=== PATIENT | male | born 1960 | race Caucasian/White ===

== ENCOUNTER 2022-11-19 09:22 | Outpatient (CLI) | payer OTHER, SELFPAY ==
[2022-11-19 13:33] LABS: Albumin* 3.9 g/dL (3.3-5.0); Chloride* 103 mmol/L (96-114); Potassium* 4.7 mmol/L (3.6-5.1); Sodium* 136 mmol/L (135-149)
[2022-11-19 13:35] LABS: Bilirubin Total* 0.5 mg/dL (0.1-1.5); Creatinine* 1.3 mg/dL (0.5-1.5); Estimated Glomerular Filt Rate 62 ml/min
[2022-11-19 13:36] LABS: Alanine Aminotransferase* 37 U/L (4-50); Alkaline Phosphatase* 84 U/L (40-150); Aspartate Amino Transferase* 32 U/L (12-35); Blood Urea Nitrogen* 24 mg/dL (7-30); Calcium* 9.4 mg/dL (8.4-10.6); Carbon Dioxide* 27 mmol/L (20-32); Glucose* 99 mg/dL (60-115)
== END 2022-11-19 09:23 | disposition home or self-care (01) ==
LOC: KYNREF 09:27
PROVIDERS: PCP Nurse Practitioner Family; Visit Provider Nurse Practitioner Family
DX: I10 Essential (primary) hypertension (principal); Z51.81 Encounter for therapeutic drug level monitoring
CPT/HCPCS: 80053

== ENCOUNTER 2022-12-04 07:56 | Outpatient (CLI) | payer OTHER, SELFPAY ==
--- NOTE | 2022-12-04 08:15 | CRLHL7_ITS ---
For Patients: As a result of the Century Cures Act, medical imaging exams and procedure reports are released immediately into your electronic medical record. You may view this report before your referring provider. If you have questions, please contact your health care provider. INDICATION: Low back pain. TECHNIQUE: Multiplanar multisequence noncontrast MR images acquired through the lumbar spine. COMPARISON: Lumbar spine radiographs 10/17/2022. FINDINGS: The lumbar lordosis is preserved. Vertebral body heights are maintained. No acute fracture or spondylolisthesis. No T1 hypointense marrow replacing lesions. Normal conus terminates at L1. T12-L1 and L1-2: No spinal canal or neural foraminal narrowing. L2-3: Shallow posterior disc bulge. No spinal canal or neural foraminal narrowing. L3-4: Mild disc degeneration. Shallow posterior disc bulge. Epidural fat prominence. Mild facet arthropathy. Ugwe-li-uqqnqfvp thecal sac narrowing. Mild bilateral neural foraminal narrowing. L4-5: Rtsj-yn-aijhjlsl disc degeneration. Posterior disc bulge. Epidural lipomatosis. Moderately advanced bilateral facet arthropathy. Bilateral facet effusions. Mild edema within the bilateral articulating facets. Severe thecal sac narrowing. Mild right without left neural foraminal narrowing. L5-S1: Epidural lipomatosis. Mild disc degeneration. Shallow posterior disc bulge. Fpzx-if-urovtcel facet arthropathy. Severe thecal sac effacement. No neural foraminal narrowing. Sacroiliac joint degenerative changes. IMPRESSION: 1. Multilevel lumbar spondylosis superimposed on epidural lipomatosis. 2. At L4-5, severe thecal sac effacement. Moderately advanced facet arthropathy. Mild edema within the bilateral articulating facets is most compatible with a stress response. 3. At L5-S1, epidural lipomatosis severely effaces the thecal sac. Dictated by Elias An MD @ 12/04/2022 9:14:57 PM (Electronically Signed)
== END 2022-12-04 07:57 | disposition home or self-care (01) ==
LOC: MRI 07:57
PROVIDERS: PCP Nurse Practitioner Family; Visit Provider Nurse Practitioner Family
DX: M54.50 Low back pain, unspecified (principal); M47.896 Other spondylosis, lumbar region
CPT/HCPCS: 72148

== ENCOUNTER 2023-01-07 19:29 | Outpatient (CLI) | payer OTHER, SELFPAY ==
--- NOTE | 2023-01-16 08:41 | W.PM.SLEEP ---
Sleep Study Details Details Interpreting Provider: Shilo Date of Sleep Study: 01/07/23 Sleep Study Details: STUDY TYPE:? Home unattended ? BMI:? 40.7 ORDERING PROVIDER:Neena Ugalde INDICATION:? Concerns about sleep apnea ? SLEEP SUMMARY:? 208.5 minutes monitor RESPIRATORY SUMMARY:? AHI 65 note the entire study was done supine. Low oxygen 48 31% of the study oxygen less than 90% Snoring 19.2% PERIODIC LIMB MOVEMENTS OF SLEEP:? Not recorded during home study CARDIAC:? Range 49-97, mean 79.1 IMPRESSION:? Severe obstructive sleep apnea with significant hypo oxygenation RECOMMENDATION: In-lab titration is preferred because of the hypo oxygenation. However an AutoSet CPAP could be utilized at pressure setting of 4-18. Once effective therapy is established the patient should have an overnight oximetry study done.
== END 2023-01-07 19:30 | disposition home or self-care (01) ==
PROVIDERS: PCP Nurse Practitioner Family; Visit Provider Nurse Practitioner Family
DX: G47.33 Obstructive sleep apnea (adult) (pediatric) (principal)
CPT/HCPCS: 95806

== ENCOUNTER 2023-05-15 09:46 | Outpatient (CLI) | payer OTHER, SELFPAY | END 2023-05-15 09:47 | disposition home or self-care (01) | LOC: KYNREF 09:50 | PROVIDERS: PCP Nurse Practitioner Family; Visit Provider Nurse Practitioner Family | DX: I10 Essential (primary) hypertension (principal) | CPT/HCPCS: 80048 ==

== ENCOUNTER 2023-10-20 09:08 | Outpatient (CLI) | payer OTHER, SELFPAY | END 2023-10-20 09:09 | disposition home or self-care (01) | LOC: NFLDREF 10-22 11:22 | PROVIDERS: PCP Nurse Practitioner Family; Referring Provider Nurse Practitioner Family; Visit Provider Nurse Practitioner Family | DX: E10.3593 Type 1 diabetes mellitus with proliferative diabetic retinopathy without macular edema, bilateral (principal); E78.5 Hyperlipidemia, unspecified; R60.0 Localized edema; Z13.0 Encounter for screening for diseases of the blood and blood-forming organs and certain disorders involving the immune mechanism; Z12.5 Encounter for screening for malignant neoplasm of prostate | CPT/HCPCS: 80053; 80061; 82043; 82570; 83880; 84443; 85025; G0103 ==

== ENCOUNTER 2024-05-25 14:24 | Outpatient (CLI) | payer MEDICARE, SELFPAY | END 2024-05-25 14:25 | disposition home or self-care (01) | LOC: KYNREF 14:25 | PROVIDERS: PCP Nurse Practitioner Family; Visit Provider Nurse Practitioner Family | DX: N39.0 Urinary tract infection, site not specified (principal) | CPT/HCPCS: 81001; 87086; 87186 ==

== ENCOUNTER 2024-06-12 12:23 | Outpatient (CLI) | payer MEDICARE, SELFPAY ==
--- OUTSIDE RECORDS SUMMARY | 2024-06-12 19:04 | XMS_ITS | Encounter Summary ---
Author Organization [facility] Address [address] [place] [address]. [place] [address] Care Team Providers Care Stock Replenisher Name Role Phone Radha Ugalde NP Primary Care Provider Encounter Details Date Type Department Care Team (Latest Contact Info) Description 05/18/2024 Travel Social History Tobacco Use Types Packs/Day Years Used Date Smoking Tobacco: Never Assessed Sex and Gender Information Value Date Recorded Sex Assigned at Not on file Legal Sex Male 8:37 AM CDT Gender Identity Not on file Sexual Orientation Not on file documented as of this encounter Plan of Treatment Upcoming Encounters Date Type Department Care Team (Late st Contact Info) Description 06/18/2024 9:30 AM WEB DEVELOPMENT MANAGER Office Visit [facility] [place] [address] [place] [phone] Jessika Chatterjee MD [address] [place] [address] documented as of this encounter Visit Diagnoses Not on filedocumented in this encounter Care Teams Stock Replenisher Relationship Specialty Start Date End Date Radha Ugalde NP [facility] [address] [place] [address] PCP - General 05/06/24 documented as of this encounter
--- OUTSIDE RECORDS SUMMARY | 2024-06-12 19:04 | XMS_ITS | Encounter Summary ---
Author Organization [facility] Address [address] [place] [address]. [place] [address] Care Team Providers Care Radiologic Tech Name Role Phone Ugalde, Radha MARTINEZ Primary Care Provider Reason for Referral * Diagnostic Imaging Ultrasound (Routine) - Pending Review Specialty Diagnoses / Procedures Referred By Mindi padilla Referred To Contact Radiology. Diagnoses Other specified symptoms and signs involving the circulatory and respiratory systems Procedures US JUAN Doppler with Exercise Bilateral Jessika Chatterjee MD [address] [place] [address] Phone: tel: fax: Referral ID Status Reason Start Date Expiration Date V isits Requested Visits Authorized [id number] Pending Review 05/18/2024 05/18/2025 1 1 Reason for Visit * Diagnostic Imaging Ultrasound (Routine) - Pending Review Specialty Diagnoses / Procedures Referred By Mindi padilla Referred To Contact Radiology. Diagnoses Other specified symptoms and signs involving the circulatory and respiratory systems Procedures US JUAN Doppler with Exercise Bilateral Jessika Chatterjee MD [address] [place] [address] Phone: tel: fax: Referral ID Status Reason Start Date Expiration Date V isits Requested Visits Authorized [id number] Pending Review 05/18/2024 05/18/2025 1 1 Encounter Details Date Type Department Care Team (Latest Contact Info) Description 05/18/2024 2:15 PM CDT Hospital Encounter [facility] [address] [place] [address] Jessika Chatterjee MD [address] [place] [address] Other specified symptoms and signs involving the circulatory and respiratory systems Discharge Disposition: Home or Self Care Social History Tobacco Use Types Packs/Day Years Used Date Smoking Tobacco: Never Assessed Sex and Gender Information Value Date Recorded Sex Assigned at Not on file Legal Sex Male 8:37 AM CDT Gender Identity Not on file Sexual Orientation Not on file documented as of this encounter Miscellaneous Notes * Result Encounter Note - Jessika Chatterjee MD - 05/18/2024 6:14 PM CDT Will discuss at his visit documented in this encounter Plan of Treatment Upcoming Encounters Date Type Department Care Team (Late st Contact Info) Description 06/18/2024 9:30 AM SCRUBBER SYSTEM ATTENDANT Office Visit [facility] [place] [address] [place] [phone] Jessika Chatterjee MD [address] [place] [address] documented as of this encounter Procedures Procedure Name Priority Date/Time Associated Diagnosis Comments US JUAN DOPPLER WITH EXERCISE BILATERAL Routine 05/18/2024 3:23 PM CDT Other specified symptoms and signs involving the circulatory and respiratory systems documented in this encounter Results * US JUAN Doppler with Exercise Bilateral (05/18/2024 3:23 PM CDT) Anatomical Region Laterality Modality Leg, Ankle, Foot Ultrasound Impressions 05/18/2024 4:23 PM CDT IMPRESSION: Moderate bilateral arterial insufficiency. JUAN CRITERIA: >1.4 NC 0.95-1.4 Normal 0.90 - 0.94 Mild 0.5 - 0.89 Moderate 0.2 - 0.49 Severe <0.2 Critical CHRISTOPHER SWIFT MD Narrative 05/18/2024 4:23 PM CDT US JUAN DOPPLER WITH EXERCISE BILATERAL ?? 05/18/2024 3:23 PM HISTORY: With TBI; Other specified symptoms and signs involving the circulatory and respiratory systems. COMPARISON: None. FINDINGS: Right JUAN: PT: 121, index of 0.7 DP: Noncompressible Left JUAN: PT: 139, index of 0.8 DP: 143, index of 0.82 Right Digital brachial index: 148, index of 0.85 Left Digital Brachial index: 144, index of 0.83 Waveforms: The right common femoral arterial waveform is triphasic/biphasic. Popliteal waveform is biphasic. Posterior tibial waveform is biphasic and dorsalis pedis waveform is triphasic. Digital waveforms are present, though diminished. The left femoral and popliteal arteries are triphasic. Posterior tibial and dorsalis pedis waveforms are biphasic. Digital waveforms are present. Exercise: The patient was exercised on a treadmill at 1.0 mph at a 0% incline for 5 minutes total. Patient noted bilateral hip pain at 1 minute and 30 seconds, bilateral thigh cramping at 2 minutes, discontinuation at 3 minutes. Right exercise JUAN: 0.76 Left exercise JUAN: 0.62 Procedure Note Christopher Swift MD - 05/18/2024 US JUAN DOPPLER WITH EXERCISE BILATERAL 05/18/2024 3:23 PM HISTORY: With TBI; Other specified symptoms and signs involving the circulatory and respiratory systems. COMPARISON: None. FINDINGS: Right UJAN: PT: 121, index of 0.7 DP: Noncompressible Left JUAN: PT: 139, index of 0.8 DP: 143, index of 0.82 Right Digital brachial index: 148, index of 0.85 Left Digital Brachial index: 144, index of 0.83 Waveforms: The right common femoral arterial waveform is triphasic/biphasic. Popliteal waveform is biphasic. Posterior tibial waveform is biphasic and dorsalis pedis waveform is triphasic. Digital waveforms are present, though diminished. The left femoral and popliteal arteries are triphasic. Posterior tibial and dorsalis pedis waveforms are biphasic. Digital waveforms are present. Exercise: The patient was exercised on a treadmill at 1.0 mph at a 0% incline for 5 minutes total. Patient noted bilateral hip pain at 1 minute and 30 seconds, bilateral thigh cramping at 2 minutes, discontinuation at 3 minutes. Right exercise JUAN: 0.76 Left exercise JUAN: 0.62 IMPRESSION: Moderate bilateral arterial insufficiency. JUAN CRITERIA: >1.4 NC 0.95-1.4 Normal 0.90 - 0.94 Mild 0.5 - 0.89 Moderate 0.2 - 0.49 Severe <0.2 Critical CHRISTOPHER SWIFT MD Jessika Chatterjee MD IMG US ORDERABLES Fi nal Result documented in this encounter Visit Diagnoses Diagnosis Other specified symptoms and signs involving the circulatory and respiratory systems documented in this encounter Care Teams Radiologic Tech Relationship Specialty Start Date End Date Radha Ugalde NP [address] [address] PCP - General 05/06/24 documented as of this encounter
--- OUTSIDE RECORDS SUMMARY | 2024-06-12 19:04 | XMS_ITS | Clinical Summary ---
Author Organization [facility] Address [address] [place] [address]. [place] [address] Care Team Providers Care Sound Effects Supervisor Name Role Phone Radha Ugalde NP Primary Care Provider [phone] Encounters Date Type Department Care Team Description 05/18/2024 2:15 PM CDT Hospital Encounter [facility] [address] [place] [phone] Jessika Chatterjee MD Other specified symptoms and signs involving the circulatory and respiratory systems Discharge Disposition: Home or Self Care 05/18/2024 Travel 05/06/2024 Telephone [facility] [place] [address] [place] [phone] Nurse, [facility] Referral (Referred by Dr. Ugalde for bilateral leg pain & swelling. Referral & office notes faxed to HIMs.) 04/29/2024 Medical Correspondence [facility] Information Management [address] [facility] [address] [place] [address] Scan, Non-Provider from Last 3 Months Social History Tobacco Use Types Packs/Day Years Used Date Smoking Tobacco: Never Assessed Sex and Gender Information Value Date Recorded Sex Assigned at Not on file Legal Sex Male 8:37 AM CDT Gender Identity Not on file Sexual Orientation Not on file Plan of Treatment Upcoming Encounters Date Type Department Care Team (Late st Contact Info) Description 06/18/2024 9:[address]NAGER Office Visit [facility] [place] [address] [place] [phone] Jessika Chatterjee MD [address] [place] [phone] Health Maintenance Due Date Last Done Comments ADVANCE CARE PLANNING 1959 ANNUAL REVIEW OF HM ORDERS 1959 CT COLONOGRAPHY 1959 FIT 1959 FLEX SIG 1959 GLUCOSE 1959 sDNA (Cologuard) 1959 COLONOSCOPY 1969 COLORECTAL CANCER SCREENING 1969 HIV SCREENING 1974 HEPATITIS C SCREENING 1977 LIPID 1999 ZOSTER IMMUNIZATION (2 of 2) 12/10/2021 10/15/2021 PHQ-2 (once per calendar year) 2023 COVID-19 Vaccine (2 - 2023-2 5 season) 2024 10/25/2020 INFLUENZA VACCINE (#1) 2024 10/15/2021 FALL RISK ASSESSMENT 2024 MEDICARE ANNUAL WELLNESS VISIT 2024 Pneumococcal Vaccine: 65+ Ye ars (2 of 2 - PCV) 2024 10/15/2021 DTAP/TDAP/TD IMMUNIZATION (2 - Td or Tdap) 01/21/2028 01/20/2018 RSV VACCINE (1 - 1-dose 75+ series) 2034 HPV IMMUNIZATION Aged Out No longer e ligible based on patient's age to complete this topic MENINGITIS IMMUNIZATION Aged Out No l onger eligible based on patient's age to complete this topic RSV MONOCLONAL ANTIBODY Aged Out No l onger eligible based on patient's age to complete this topic Procedures Procedure Name Priority Date/Time Associated Diagnosis Comments US JUAN DOPPLER WITH EXERCISE BILATERAL Routine 05/18/2024 3:23 PM CDT Other specified symptoms and signs involving the circulatory and respiratory systems HEMOGLOBIN A1C (EXTERNAL RESULT) Routine 04/29/2024 8:38 AM CDT LAB RESULT - HIM SCAN 04/29/2024 12:00 AM CDT LAB RESULT - HIM SCAN 04/29/2024 12:00 AM CDT LAB RESULT - HIM SCAN 04/29/2024 12:00 AM CDT from Last 3 Months Results * US JUAN Doppler with Exercise Bilateral (05/18/2024 3:23 PM CDT) Anatomical Region Laterality Modality Leg, Ankle, Foot Ultrasound Impressions 05/18/2024 4:23 PM CDT IMPRESSION: Moderate bilateral arterial insufficiency. JUAN CRITERIA: >1.4 NC 0.95-1.4 Normal 0.90 - 0.94 Mild 0.5 - 0.89 Moderate 0.2 - 0.49 Severe <0.2 Critical CHRISTOPHER SWIFT MD [facility] 05/18/2024 4:23 PM CDT US JUAN DOPPLER [...] MD IMG US ORDERABLES Fi nal Result * (ABNORMAL) Hemoglobin A1c (External Result) (04/29/2024 8:38 AM CDT) Hemoglobin A1C (External) 5.9(A) 0 - 5.6 % EXTERNAL LAB Blood 04/29/2024 8:38 AM CDT Narrative EXTERNAL LAB - 04/29/2024 8:38 AM CDT [facility] - External Lab Results [place] - [place] + X - [place] [address] [place] [id number] us Provider Outside LAB - HIM EXTERNAL RESULT Edite d Result - Final EXTERNAL LAB External Lab * Lab Result - HIM Scan (04/29/2024 12:00 AM CDT) Only the most recent of3 resultswithin the time period is included. 04/29/2024 us Provider Outside NON-BEAKER LAB TESTING Final Result from Last 3 Months Insurance [employer] MEDICARE ADVANTAGE [employer] MED[employer]ARE ADVANTAGE Care Teams Sound Effects Supervisor Relationship Specialty Start Date End Date Radha Ugalde NP [address] [address] PCP - General 05/06/24
--- OUTSIDE RECORDS SUMMARY | 2024-06-12 19:04 | XMS_ITS | Referral Summary ---
Author Organization [facility] Address [address] [place] [address]. [place] [address] Care Team Providers Care Men'S Swim Coach Name Role Phone Radha Ugalde NP Primary Care Provider Encounters Date Type Department Care Team Description 05/18/2024 2:15 PM CDT Hospital Encounter [facility] [address] [place] [phone] Jessika Chatterjee MD Other specified symptoms and signs involving the circulatory and respiratory systems Discharge Disposition: Home or Self Care 05/18/2024 Travel 05/06/2024 Telephone [facility] [place] [address] [place] [phone] Nurse, [facility] Referral (Referred by Dr. Ugalde for bilateral leg pain & swelling. Referral & office notes faxed to HIMs.) 04/29/2024 Medical Correspondence [facility] Information Management [address] [facility] [address] [place] [address] Scan, Non-Provider from Last 3 Months Social [...] st Contact Info) Description 06/18/2024 9:30 AM MANUFACTURING ENGINEERING TECHNOLOGIST Office Visit [facility] [place] [address] [place] [phone] Jessika Chatterjee MD [address] [place] [phone] Procedures Procedure Name Priority Date/Time Associated Diagnosis [...] Critical CHRISTOPHER SWIFT MD Jessika Chatterjee MD [facility] [place] ORDERABLES Fi nal Result * (ABNORMAL) Hemoglobin A1c (External Result) (04/29/2024 8:38 AM CDT) Hemoglobin A1C (External) 5.9(A) 0 - 5.6 % EXTERNAL LAB Blood 04/29/2024 8:38 AM CDT Narrative EXTERNAL LAB - 04/29/2024 8:38 AM CDT [facility] - External Lab Results [place] - [place] + X - [place] [address] [place] [address] us Provider Outside LAB - HIM EXTERNAL RESULT Edite d Result - Final EXTERNAL LAB External Lab * Lab Result - HIM Scan (04/29/2024 12:00 AM CDT) Only the most recent of3 resultswithin the time period is included. 04/29/2024 us Provider Outside MH NON-BEAKER LAB TESTING Final Result from Last 3 Months Insurance [employer] MEDICARE ADVANTAGE [employer] MEDICARE ADVANTAGE Care Teams Men'S Swim Coach Relationship Specialty Start Date End Date Radha Ugalde NP [address] [place] [address] PCP - General 05/06/24
--- OUTSIDE RECORDS SUMMARY | 2024-06-12 19:05 | XMS_ITS | Encounter Summary ---
Author Organization [place] Address [address] [place] [address]. [place] [address] Care Team Providers Care General Surgery Physician Assistant Name Role Phone Radha Ugalde NP Primary Care Provider Encounter Details Date Type Department Care Team (Late st Contact Info) Description 04/29/2024 Medical Correspondence [facility] Information Management [address] [place] [address] Scan, Non-Provider Social History Tobacco Use Types Packs/Day Years [...] st Contact Info) Description 06/18/2024 9:30 AM INVOICING MACHINE OPERATOR Office Visit [facility] [place] [address] [place] [phone] Jessika Chatterjee MD [address] [place] [address] documented as of this encounter Visit Diagnoses Not on filedocumented in this encounter Care Teams General Surgery Physician Assistant Relationship Specialty Start Date End Date Radha Ugalde NP [address] [address] PCP - General 05/06/24 documented as of this encounter
--- OUTSIDE RECORDS SUMMARY | 2024-06-12 19:05 | XMS_ITS | Encounter Summary ---
Author Organization [facility] Address [address] [place] [address]. [place] [address] Care Team Providers Care Correction Officer Head Name Role Phone Radha Ugalde NP Primary Care Provider Reason for Referral * Diagnostic Imaging Ultrasound (Routine) - Pending Review Specialty Diagnoses / Procedures Referred By Contac t Referred To Contact Radiology. Diagnoses Other specified symptoms and signs involving the circulatory and respiratory systems Procedures US JUAN Doppler with Exercise Bilateral Jessika Chatterjee MD [address] [place] [address] Phone: tel: fax: Referral ID Status Reason Start Date Expiration Date V isits Requested Visits Authorized [id number] Pending Review 05/18/2024 05/18/2025 1 1 Reason for Visit * Reason Onset Date Comments Referral 05/06/[address] Ugalde for bilateral leg pain & swelling. [facility] Encounter Details Date Type Department Care Team (Late st Contact Info) Description 05/06/2024 Telephone [facility] [place] [address] [place] [phone] Nurse, [facility] Referral (Referred by Dr. Ugalde for bilateral leg pain & swelling. Referral & office notes faxed to HIMs.) Social History Tobacco Use Types Packs/Day Years Used Date Smoking Tobacco: Never Assessed Sex and Gender Information Value Date Recorded Sex Assigned at Not on file Legal Sex Male 8:37 AM CDT Gender Identity Not on file Sexual Orientation Not on file documented as of this encounter Miscellaneous Notes * Telephone Encounter - Antionette Miramontes - 05/06/2024 2:53 PM CDT Patient is scheduled for his Ultrasound on 05/18/24 and Consult Appointment rescheduled with Dr Chatterjee on 05/26/24. * Telephone Encounter - Marian Kruse - 05/06/2024 2:17 PM CDT Needs to be rescheduled with vasc medicine JUAN US with exercise NEW VASCULAR PATIENT consult with vascular medicine Please schedule this at next available Appt note: Referred by Dr. Ugalde for bilateral leg pain & swelling. Referral & office notes faxed to HIMs. * Telephone Encounter - Radha Lopez RN - 05/06/2024 8:38 AM CDT Images from the original note were not included. Referral received via Fax on 04/29/2024. Referred by Dr. Ugalde for bilateral leg pain & swelling. Referral & office notes faxed to HIMs. Previous imaging completed (pertinent to referral): NA Routing to scheduling to coordinate the following: JUAN US with exercise NEW VASCULAR PATIENT consult with vascular medicine Please schedule this at next available Appt note: Referred by Dr. Ugalde for bilateral leg pain & swelling. Referral & office notes faxed to HIMs. * Addendum Note - Brennan Hopper RN - 05/06/2024 8:38 AM CDTAddended by: BRENNAN HOPPER on: 05/18/2024 02:28 PM Modules accepted: Orders documented in this encounter Plan of Treatment Upcoming Encounters Date Type Department Care Team (Late st Contact Info) Description 06/18/2024 9:30 AM TELEPHONE MAINTAINER Office Visit [facility] [place] [address] [place] [phone] Jessika Chatterjee MD [address] [place] [address] documented as of this encounter Results * US JUAN Doppler [...] documented in this encounter Visit Diagnoses Diagnosis Pain in both lower legs- Primary Other specified symptoms and signs involving the circulatory and respiratory systems Other specified symptoms and signs involving the circulatory and respiratory systems documented in this encounter Care Teams Correction Officer Head Relationship Specialty Start Date End Date Radha Ugalde NP [address] [address] PCP - General 05/06/24 documented as of this encounter
== END 2024-06-12 12:24 | disposition home or self-care (01) ==
LOC: NFLDREF 19:01
PROVIDERS: PCP Nurse Practitioner Family; Referring Provider Nurse Practitioner Family; Visit Provider Family Medicine
DX: R30.0 Dysuria (principal); N39.0 Urinary tract infection, site not specified; R31.9 Hematuria, unspecified
CPT/HCPCS: 87086; 87186

== ENCOUNTER 2025-05-05 09:28 | Outpatient (CLI) | payer MEDICARE, SELFPAY | END 2025-05-05 09:29 | disposition home or self-care (01) | PROVIDERS: PCP Nurse Practitioner Family; Visit Provider Nurse Practitioner Family | DX: E10.3593 Type 1 diabetes mellitus with proliferative diabetic retinopathy without macular edema, bilateral (principal); G47.30 Sleep apnea, unspecified | CPT/HCPCS: 80053; 80061; 82043; 82570; 82607; 84443; G0103 ==

== ENCOUNTER 2025-06-01 21:03 | Outpatient (CLI) | payer MEDICARE, SELFPAY ==
--- NOTE | 2025-06-14 11:54 | P.SLS_ITS ---
Sleep Study Details Details Interpreting Provider: Patrice Date of Sleep Study: 06/01/25 Sleep Study Details: STUDY TYPE:? Hospital-based, attended, CPAP titration ? BMI:? 45.8 ORDERING PROVIDER:Neena Ugalde INDICATION:? Concern for sleep apnea ? SLEEP SUMMARY:? 342 minutes total sleep time RESPIRATORY SUMMARY:? Mean oxygen awake 95 asleep 92, minimum 68, 8.6 minutes o xygen between 80 and 88% AHI 35 per CMS guideline, 38.6 per rule 1A. Supine REM AHI 63.5 patient was titrated with CPAP starting at a pressure of 14 which included REM stage sleep in the supine position and decreased AHI to 2.1. He was advanced to 15 which decreased AHI to 0. PERIODIC LIMB MOVEMENTS OF SLEEP:? Pre treatment index 0, post treatment index 2.2, index with arousal 0.2 CARDIAC:? Awake 69 asleep 65 no arrhythmias noted IMPRESSION:? Severe obstructive sleep apnea with successful titration at pressures of 14 and 15. Obesity RECOMMENDATION: Weight loss is recommended. Recommend initiating CPAP at a pressure of 14 or in AutoSet pressure of 10-17.
== END 2025-06-01 21:04 | disposition home or self-care (01) ==
LOC: SLEEP 21:06
PROVIDERS: PCP Nurse Practitioner Family; Visit Provider Otolaryngology
DX: G47.33 Obstructive sleep apnea (adult) (pediatric) (principal)
CPT/HCPCS: 95811

== ENCOUNTER 2025-06-13 08:50 | Outpatient (CLI) | payer MEDICARE, SELFPAY | END 2025-06-13 08:51 | disposition home or self-care (01) | LOC: NFLDREF 06-16 12:33 | PROVIDERS: PCP Nurse Practitioner Family; Referring Provider Nurse Practitioner Family; Visit Provider Nurse Practitioner Family | DX: E10.3593 Type 1 diabetes mellitus with proliferative diabetic retinopathy without macular edema, bilateral (principal) | CPT/HCPCS: 82607 ==

== ENCOUNTER 2025-06-24 09:05 | Outpatient (CLI) | payer MEDICARE, SELFPAY | END 2025-06-24 09:06 | disposition home or self-care (01) | PROVIDERS: PCP Nurse Practitioner Family; Referring Provider Nurse Practitioner Family; Visit Provider Nurse Practitioner Family | DX: E53.8 Deficiency of other specified B group vitamins (principal); E10.3593 Type 1 diabetes mellitus with proliferative diabetic retinopathy without macular edema, bilateral | CPT/HCPCS: 82607; 85025 ==